=== PATIENT | female | born 1990 | race Caucasian/White ===

== ENCOUNTER 2020-11-21 14:50 | Emergency (ER) | payer OTHER, MEDICAID, SELFPAY ==
--- NOTE | ~2020-11-21 | XR_ITS ---
EXAMINATION: RIGHT WRIST RIGHT ELBOW CLINICAL INFORMATION: Pain. Possible fracture COMPARISON: None TECHNIQUE: 4 views right wrist. 3 views right elbow FINDINGS: Right wrist: Some partially opaque material superimposes over the distal ulna. The alignment is normal. No acute fracture. No focal lesion. Specifically the region of the radial styloid appears intact and there is no convincing overlying soft tissue swelling. The navicular appears intact. Right elbow: The lateral view is not optimally positioned. There is a subtle nearly nondisplaced fracture of the radial neck. There is likely hemarthrosis. XR/XR elbow RT min 3V IMPRESSION: Nearly nondisplaced radial neck fracture with hemarthrosis. No fracture or subluxation around the wrist.
--- NOTE | ~2020-11-21 | XR_ITS ---
EXAMINATION: RIGHT WRIST RIGHT ELBOW CLINICAL INFORMATION: Pain. Possible fracture COMPARISON: None TECHNIQUE: 4 views right wrist. 3 views right elbow FINDINGS: Right wrist: Some partially opaque material superimposes over the distal ulna. The alignment is normal. No acute fracture. No focal lesion. Specifically the region of the radial styloid appears intact and there is no convincing overlying soft tissue swelling. The navicular appears intact. Right elbow: The lateral view is not optimally positioned. There is a subtle nearly nondisplaced fracture of the radial neck. There is likely hemarthrosis. XR/XR wrist RT min 3V IMPRESSION: Nearly nondisplaced radial neck fracture with hemarthrosis. No fracture or subluxation around the wrist.
[2020-11-21 15:30] VITALS: BP 153/98; PULSE 92; RESP 20; TEMP 36.9; O2SAT 96; BMI 39.4
--- NOTE | 2020-11-21 16:16 | ED.EXTPRO ---
HPI - Extremity Problem General Chief complaint: Extremity Injury, Upper Stated complaint: R arm fracture, hand swollen Time Seen by Provider: 11/21/20 15:35 Source: patient Mode of arrival: ambulatory Limitations: no limitations History of Present Illness HPI Narrative: 30 y/o female presents to the ER for evaluation of right arm pain. [place] her right wrist and forearm. She went to Urgent are last night and diagnosed with a radius fracture. She was placed in a long arm splint. She presents today for evaluation as the arm started to hurt more, she noticed her hand was more swollen. Related Data Previous Rx's Medication Instructions Recorded hydrocodone 5 mg-acetaminophen 325 1 tab PO Q4-6H PRN #10 tab 11/21/20 mg tablet ibuprofen 600 mg tablet 600 mg PO Q8H PRN #20 tab 11/21/20 Allergies Allergy/AdvReac Type Severity Reaction Status Date / Time Penicillins [PENICILLINS] Allergy Unknown UNKNOWN Unverified 11/27/19 16:30 [facility] Past Medical History Surgical History (Updated 11/21/20 @ 15:33 by Verna Haywood) Previous section Social History Social History Advance Directives: No Advance Directives Information Provided: No Patient : No Physical Exam Vital Signs: Vital Signs: Last Vital Signs Temp 98.4 F 11/21/20 15:30 Pulse 92 11/21/20 15:30 Resp 20 11/21/20 15:30 BP 153/98 H 11/21/20 15:30 Pulse Ox 96 11/21/20 15:30 Body Mass Index 39.4 Appearance: Alert. Oriented X3. No acute distress. Eyes: Pupils equal, round and reactive to light. ENT: Pharynx normal. Neck: Normal inspection. Neck supple. CVS: Normal heart rate and rhythm. Pulses normal. Respiratory: No respiratory distress. Breath sounds normal. Skin: Skin warm and dry. Normal skin color. Normal skin turgor. No rashes. Extremities: right elbow with generalized swelling, slight warmth, no erythema to the area, very limited ROM due to pain, tender throughout entire elbow. right forearm with soft compartments. right wrist normal to inspection, limited active ROM due to pain in forearm and elbow. 2+ radial pulse. able to move all 5 digits, normal res habilitation assistant, no sensory deficits. Neuro: Oriented X 3. nonfocal Course Course Course Narrative: 30 y/o female presenting for evaluation of right elbow fracture that occurred yesterday. Splinted at Urgent Care with worsening pain extending into hand today. Splint removed with improvement in symptoms. Repeat XRs performed here. She would like to follow up with our Orthopedics rather than going to [facility] where she has gone in the past. Reevaluation(s) Reevaluation #1: XR showing nondisplaced radial neck fracture with proabble hemarthosis. Dalila Meyer PA-C from orthopedics made aware of the case, they will see her in the office. Plan to re-splint and provide pain control with d/c. Reevaluation #2: Splint in adequate position. Sling in place. Patient feels much better. Stable for d/c home with Ortho follow up. Discharge Plan Discharge Clinical Impression: Fracture of neck of radius Patient Disposition: Home, Self-Care Instructions: Elbow Fracture (ED) Additional Instructions: Your x-ray today showed a nondisplaced fracutre of the radial neck. Keep the splint in place until you are seen by Orthopedics this week. Name and number listed below, they are aware of your case. Recommend elevation of your arm whenever possible. Take the prescribed medications as needed for pain. If you develop new or worsening symptoms call 911 or come back to the ER for further evaluation. Prescriptions: New ibuprofen 600 mg tablet 600 mg PO Q8H PRN (Reason: pain) Qty: 20 RF: 0 hydrocodone-acetaminophen 5-325 mg tablet 1 tab PO Q4-6H PRN (Reason: pain) Qty: 10 RF: 0 Referrals: Dalila Meyer PA-C [Physician [employer]] - 2 days (left radial neck fx w/ hemarthrosis)
[2020-11-21] MEDS: HYDROcodone Bit/Acetam 5/325 TABLET 1 TAB PO (17:05)
--- NOTE | 2020-11-21 18:16 | PC.NURSE ---
SPLINT FROM URGENT CARE REMOVED AND NEW POSTERIOR LONG PLACE +CMS TO FINGER CHECKED BY SHAYNE MORAN.
== END 2020-11-21 18:17 | disposition home or self-care (01) ==
PROVIDERS: Emergency Provider Emergency Medicine
DX: S52.131A Displaced fracture of neck of right radius, initial encounter for closed fracture (principal); M25.521 Pain in right elbow; W01.0XXA Fall on same level from slipping, tripping and stumbling without subsequent striking against object, initial encounter; Y93.9 Activity, unspecified; Y92.832 Beach as the place of occurrence of the external cause; Y99.9 Unspecified external cause status; Z79.899 Other long term (current) drug therapy
CPT/HCPCS: 29125; 73080; 73110; 99283

== ENCOUNTER → 2020-11-24 14:49 | Outpatient (BNVA) | payer OTHER, MEDICAID, SELFPAY | PROVIDERS: Visit Provider Physician Assistant ==

== ENCOUNTER 2020-11-27 13:48 | Emergency (ER) | payer OTHER, MEDICAID, SELFPAY ==
[2020-11-27 14:51] VITALS: BP 167/100; PULSE 77; RESP 18; TEMP 36.9; O2SAT 98; BMI 42.0
--- NOTE | 2020-11-27 15:16 | ED.EXTPRO ---
HPI - Extremity Problem General Chief complaint: Extremity Problem Stated complaint: R HAND NUMBNESS PAIN Time Seen by Provider: 11/27/20 15:06 Source: patient Limitations: no limitations History of Present Illness HPI Narrative: This is a 30-year-old female who had fallen 6 days ago and injured her right forearm. The patient was diagnosed with the minimally displaced fracture at her elbow. She was placed in a splint. She did follow up with Orthopedics and the splint was deemed unnecessary, the patient was placed in an Carl bandage and a sling. The patient has been taking ibuprofen for pain. She also was prescribed Vicodin but states she does not like to take that type of medicine. She complains of some tingling in her right hand and pain with movement. She has 2 young children and notes that interacting with them seems to exacerbate the pain. The patient states she prefers to have a splint on the arm as it was more comfortable when the splint was in place and that is her principal reason for presenting today MD Complaint: extremity pain Onset (ago): day(s) Location: right Related Data Home Medications Medication Instructions Recorded Confirmed albuterol sulfate 90 mcg/actuation 2 puff INHALATION QID PRN 11/24/20 aerosol inhaler fluticasone propionate 50 1 spray INTRANASAL BID 11/24/20 mcg/actuation nasal spray,suspension nystatin 100,000 unit/gram topical TOPICAL 11/24/20 powder (Nystop) Previous Rx's Medication Instructions Recorded hydrocodone 5 mg-acetaminophen 325 1 tab PO Q4-6H PRN #10 tab 11/21/20 mg tablet ibuprofen 600 mg tablet 600 mg PO Q8H PRN #20 tab 11/21/20 ibuprofen 800 mg tablet 800 mg PO Q8H PRN 30 Days #90 tab 11/24/20 Allergies Allergy/AdvReac Type Severity Reaction Status Date / Time Penicillins [PENICILLINS] Allergy Unknown UNKNOWN Unverified 11/24/20 15:18 Review of Systems Musculoskeletal: Comments: Right elbow/forearm pain, paresthesia to right hand PMFSH Past Medical History Surgical History Previous section Social History Social History Advance Directives: No Advance Directives Information Provided: No Physical Exam Vital Signs: Vital Signs: Last Vital Signs Temp 98.4 F 11/27/20 14:51 Pulse 77 11/27/20 14:51 Resp 18 11/27/20 14:51 BP 167/100 H 11/27/20 14:51 Pulse Ox 98 11/27/20 14:51 Body Mass Index 42.0 HENMT: Head: Yes normal to inspection Resp: Effort & Inspection: normal respiratory effort Auscultation: clear to auscultation bilaterally Cardio: Rate: regular rate Rhythm: regular rhythm Heart sounds: S1 normal heart sound present and S2 normal heart sound present Extrem: Other: No ecchymosis, swelling, deformity. Mild tenderness to left medial elbow. Normal radial pulses and neurovascular function of the hand. MDM - Extremity (Nontraumatic) MDM Narrative Medical decision making narrative: Patient with the right radial neck fracture, occurred 6 days ago, had been splinted but splint was removed and patient was recommended to use a sling and Carl bandage however the patient states she has more pain without the splint, request splint replacement. A sugar tong splint was placed from the elbow to the wrist and the patient will use a sling as well. She can follow-up with orthopedics Discharge Plan Discharge Clinical Impression: Fracture of neck of right radius Patient Disposition: Home, Self-Care Instructions: Elbow Fracture (ED) Additional Instructions: Follow-up with orthopedics. Wear the splint for comfort for at least 2 weeks, and then transition to a sling, or is advised Orthopedics. He has had for a fin for pain. Return for any new or worsened symptoms. Prescriptions: No Action ibuprofen 600 mg tablet 600 mg PO Q8H PRN (Reason: pain) Qty: 20 RF: 0 hydrocodone-acetaminophen 5-325 mg tablet 1 tab PO Q4-6H PRN (Reason: pain) Qty: 10 RF: 0 fluticasone propionate 50 mcg/actuation spray,suspension 1 spray intranasal BID RF: 0 albuterol sulfate 90 mcg/actuation HFA aerosol inhaler 2 puff inhalation QID PRN (Reason: wheezing) RF: 0 nystatin [Nystop] 100,000 unit/gram powder topical RF: 0 ibuprofen 800 mg tablet 800 mg PO Q8H PRN (Reason: pain) 30 Days Qty: 90 RF: 3 Interventions: ED Discharge Assessment Last Done: 11/27/20 16:07 Discharge Date/Time: 11/27/20 16:07
== END 2020-11-27 16:07 | disposition home or self-care (01) ==
PROVIDERS: Emergency Provider Emergency Medicine
DX: S52.131A Displaced fracture of neck of right radius, initial encounter for closed fracture (principal); M79.601 Pain in right arm; X58.XXXA Exposure to other specified factors, initial encounter; Y93.9 Activity, unspecified; Y92.9 Unspecified place or not applicable; Y99.9 Unspecified external cause status
CPT/HCPCS: 29105; 99283; 99284

== ENCOUNTER → 2020-11-29 13:04 | Outpatient (BNVA) | payer OTHER, MEDICAID, SELFPAY | PROVIDERS: Visit Provider Physician Assistant ==

== ENCOUNTER 2020-11-30 11:34 | Outpatient (REF) | payer OTHER, MEDICAID, SELFPAY ==
--- NOTE | ~2020-11-30 | XR_ITS ---
EXAMINATION: XR ELBOW, RIGHT XR WRIST, RIGHT CLINICAL INFORMATION: Right wrist and elbow pain. COMPARISON: 11/21/2020 TECHNIQUE: AP, lateral, and oblique views of the right elbow. 3 views of the right wrist. FINDINGS: Views of the right elbow again demonstrate a nondisplaced fracture involving the radial head. No dislocation is evident. There remains a large elbow effusion. There is no evidence of acute fracture or dislocation of the right wrist. Joint spaces intact. No significant degenerative spurring is seen. XR/XR elbow RT min 3V IMPRESSION: No change in appearance of nondisplaced right radial head fracture with right elbow effusion. No bony abnormality of the right wrist identified.
== END 2020-11-30 11:35 | disposition home or self-care (01) ==
LOC: HO.XRAY 11:34
PROVIDERS: Visit Provider Physician Assistant
DX: M25.521 Pain in right elbow (principal)
CPT/HCPCS: 73080

== ENCOUNTER 2020-12-02 11:13 | Outpatient (REF) | payer OTHER, MEDICAID, SELFPAY ==
--- NOTE | ~2020-12-02 | XR_ITS ---
EXAMINATION: XR WRIST, RIGHT CLINICAL INFORMATION: Pain in right wrist COMPARISON: Right wrist radiograph from 11/21/2020 TECHNIQUE: PA, lateral, and oblique views of the right wrist. FINDINGS: No acute visible fracture or dislocation. Joint spaces and alignment are maintained. Soft tissues are unremarkable. XR/XR wrist RT min 3V IMPRESSION: No acute visible fracture or dislocation.
== END 2020-12-02 11:14 | disposition home or self-care (01) ==
LOC: HO.HOSX 11:13
PROVIDERS: Visit Provider Physician Assistant
DX: S52.121D Displaced fracture of head of right radius, subsequent encounter for closed fracture with routine healing (principal); S63.501D Unspecified sprain of right wrist, subsequent encounter
CPT/HCPCS: 73110

== ENCOUNTER 2020-12-09 08:30 | Outpatient (REF) | payer OTHER, MEDICAID, SELFPAY ==
--- NOTE | ~2020-12-09 | XR_ITS ---
EXAMINATION: XR ELBOW, RIGHT CLINICAL INFORMATION: Elbow pain. COMPARISON: 11/30/20. TECHNIQUE: AP and lateral views of the right elbow. FINDINGS: The fracture of the radial head is becoming indistinct with ongoing healing. Anatomic alignment is maintained. No new abnormality. No joint effusion is demonstrated. XR/XR elbow RT 2V IMPRESSION: Healing fracture right radial head with stable anatomic alignment.
--- NOTE | ~2020-12-09 | XR_ITS ---
EXAMINATION: XR WRIST, RIGHT CLINICAL INFORMATION: Pain. Trauma. COMPARISON: 12/02/20. 11/21/20. TECHNIQUE: PA, lateral, and oblique views of the right wrist. FINDINGS: The bones and soft tissues are normal. No fracture. Alignment is anatomic with normal joint spaces. XR/XR wrist RT min 3V IMPRESSION: Normal right wrist.
== END 2020-12-09 08:31 | disposition home or self-care (01) ==
LOC: HO.HOSX 08:30
PROVIDERS: Visit Provider Orthopaedic Surgery
DX: S52.121D Displaced fracture of head of right radius, subsequent encounter for closed fracture with routine healing (principal)
CPT/HCPCS: 73070; 73110

== ENCOUNTER → 2020-12-30 09:45 | Outpatient (BNVA) | payer OTHER, MEDICAID, SELFPAY | PROVIDERS: Visit Provider Orthopaedic Surgery ==

== ENCOUNTER 2021-01-08 10:21 | Emergency (ER) | payer OTHER, MEDICAID, SELFPAY ==
--- NOTE | ~2021-01-08 | CT_ITS ---
EXAMINATION: CT ABDOMEN AND PELVIS WITHOUT CONTRAST CLINICAL INFORMATION: Right lower quadrant and left flank pain. Evaluate for kidney stones. COMPARISON: None TECHNIQUE: Multidetector volumetric imaging was performed from the superior aspect of the liver through the pubic symphysis. Sagittal and coronal reformatted images were obtained on the technologist's workstation. This CT examination was performed using dose optimization techniques as appropriate, variously including the following: *Automated exposure control *Adjustment of mA and/or kV according to patient size (this includes techniques or standardized protocols for targeted exams where dose is matched to indication/reason for exam; i.e. extremities or head) *Use of iterative reconstruction technique DLP: 1129 mGy-cm FINDINGS: LUNG BASES: The visualized lung bases are unremarkable. LIVER, GALLBLADDER, AND BILIARY TREE: The liver is enlarged and low in attenuation suggestive of fatty infiltration. No focal liver lesion or biliary duct dilatation. The gallbladder is unremarkable with no evidence of radiopaque gallstones, gallbladder wall thickening, or obvious pericholecystic inflammatory changes. PANCREAS: Unremarkable. SPLEEN: Unremarkable. ADRENAL GLANDS: Unremarkable. KIDNEYS AND URETERS: The kidneys are normal in size, shape, and attenuation. No hydronephrosis, hydroureter, or calculi seen. No perinephric stranding. BLADDER: Unremarkable. GASTROINTESTINAL TRACT: The small and large bowel are unremarkable. The appendix is unremarkable. ABDOMINAL WALL: There is a small umbilical hernia containing fat. There are postsurgical changes to the low midline abdominal wall. LYMPH NODES: Normal. VASCULAR: Unremarkable. PELVIC VISCERA: There is stranding of the fat anterior to the uterus extending to the abdominal wall likely related to post surgical changes. There is a small cyst seen in the left pelvis measuring 9 mm axial image 84 series 3. This appears separate from the uterus, bladder and left adnexa. This has low Hounsfield units suggestive of a simple cyst. This is of uncertain etiology. The uterus and ovaries are unremarkable. OSSEOUS STRUCTURES: Unremarkable. CT/CT abdomen pelvis wo con IMPRESSION: No renal stone or hydronephrosis seen. Normal-appearing appendix. Postsurgical changes in the pelvis. 1 cm a small cyst in the left pelvis of uncertain etiology. Fatty liver.
[2021-01-08 10:45] VITALS: BP 149/99; PULSE 99; RESP 18; TEMP 36.9; O2SAT 98; BMI 39.4
[2021-01-08 11:48] LABS: UPreg QC Valid YES; Urine Pregnancy NEGATIVE (NEGATIVE)
[2021-01-08 11:53] LABS: Hematocrit 39.8 % (37.0-47.0); Hemoglobin 13.6 g/dl (12.0-16.0); Mean Corpuscular HGB Conc 34.2 g/dl (31.0-35.0); Mean Corpuscular Hemoglobin 31.1 pg (27.0-33.0); Mean Corpuscular Volume 90.9 fL (80.0-98.0); Platelet Count 352 X10*3/uL (160-400); Red Blood Count 4.38 X10*6/uL (4.20-5.50); Red Cell Distribution Width 11.9 % (11.0-16.0); White Blood Count 9.7 X10*3/uL (4.8-10.8)
[2021-01-08 11:54] LABS: Appearance Urine CLOUDY; Glucose Urine UA NEG (NEG); Leukocyte Esterase Urine TRACE (NEG); Nitrite Urine NEG (NEG); Specific Gravity - Urine >= 1.030 (1.005-1.025); Urine Blood 3+ (NEG); Urine Ketones NEG (NEG); Urine Protein 2+ MG/DL (NEG-TRACE)
[2021-01-08 11:55] LABS: Mucus Urine TRACE /LPF; RBC Urine TNTC /HPF (0); Squamous Epithelial Cell Urine TRACE /LPF
--- NOTE | 2021-01-08 11:55 | ED_ITS ---
HPI - General Adult General Chief complaint: Abdominal Pain Stated complaint: ABD AND BACK PAIN BLOOD IN URINE [facility] Time Seen by Provider: 01/08/21 11:53 Source: patient Mode of arrival: ambulatory Limitations: no limitations History of Present Illness HPI narrative: 30 year old famle with no known medical history presents to the ED with abdominal pain, flank pain, blood in urine X3 days and progressively worsening. She states the abdominal pain is localized to the right lower quadrant, she describes is intermittent, stabbing pain that is 10/10. She also describes left flank pain that radiates to her anterior abdomen, again intermittent in nature, 10/10 pain. She also states that she has noted that she has been having blood in her urine for the past 3 days, it is dark red in color, this was never happened to her before. She has no history of kidney stones. She also notes that she has been excessively sweating, nauseous over the past 3 days. She reports anorexia. She denies chest pain, shortness of breath, fevers, chills, vomiting, diarrhea, weakness, recent upper respiratory infec tion, recent sick contacts. Onset (ago): day(s) (3) Location: abdomen (RLQ) Radiation: non-radiation Severity: severe Severity scale (1-10): 10 Quality: stabbing Pain Consistency: intermittent Relieving factors: none Exacerbating factors: none Associated symptoms: diaphoresis Treatments prior to arrival: none Related Data Home Medications Medication Instructions Recorded Confirmed albuterol sulfate 90 mcg/actuation 2 puff INHALATION QID PRN 11/24/20 aerosol inhaler fluticasone propionate 50 1 spray INTRANASAL BID 11/24/20 mcg/actuation nasal spray,suspension nystatin 100,000 unit/gram topical TOPICAL 11/24/20 powder (Nystop) Previous Rx's Medication Instructions Recorded hydrocodone 5 mg-acetaminophen 325 1 tab PO Q4-6H PRN #10 tab 11/21/20 mg tablet ibuprofen 600 mg tablet 600 mg PO Q8H PRN #20 tab 11/21/20 ibuprofen 800 mg tablet 800 mg PO Q8H PRN 30 Days #90 tab 11/24/20 nitrofurantoin 100 mg PO Q12H 5 Days #10 cap 01/08/21 monohydrate/macrocrystals 100 mg capsule (Macrobid) phenazopyridine 100 mg tablet 100 mg PO TID PRN #12 tab 01/08/21 (Pyridium) Allergies Allergy/AdvReac Type Severity Reaction Status Date / Time Penicillins [PENICILLINS] Allergy Unknown UNKNOWN Verified 12/09/20 11:52 Review of Systems Review of Systems: Yes all other systems are reviewed and are negative Constitutional: Constitutional: Reports no additional constitutional complaints, Denies body ache(s), Denies chills, Denies fever(s), Denies headache(s) and Denies weakness Eyes: Eyes: Reports no additional eye complaints and Denies change in vision ENT: Reports system reviewed and no additional complaints, except as documented, Denies dizziness, Denies headache(s), Denies nasal congestion, Denies nasal discharge and Denies neck pain Cardiovascular: Cardiovascular: Reports no additional cardiovascular complaints, Denies chest pain, Denies leg edema and Denies dyspnea Respiratory: Respiratory: Reports no additional respiratory complaints, Denies cough and Denies dyspnea Gastrointestinal: Gastrointestinal: Reports no additional gastrointestinal complaints, Reports abdominal pain (RLQ), Denies diarrhea, Denies nausea and Denies vomiting Genitourinary: Genitourinary: Reports no additional female genitourinary complaints, Reports hematuria and Denies urinary incontinence Musculoskeletal: Musculoskeletal: Reports no additional musculoskeletal complaints, Reports back pain (Left flank pain ), Denies arthralgias, Denies joint swelling, Denies neck pain, Denies numbness and Denies tingling Integumentary/Breasts: Skin/Breast: Reports system reviewed and no additional complaints, except as docu and Denies rash Neurologic: Reports system reviewed and no additional complaints, except as documented, Denies Abnormal speech present, Denies dizziness, Denies headache(s), Denies numbness, Denies tingling and Denies weakness [facility] Past Medical History Attestation statement: The following information was validated with the patient. Source: old records reviewed and nursing notes reviewed Surgical History Previous section Social History Social History Alcohol intake: never Patient Tobacco Use Status: Never used Tobacco Use of substances other than those prescribed or required for medical reasons: No Advance Directives: No Advance Directives Information Provided: No Patient : No Physical Exam Vital Signs: Vital Signs: Last Vital Signs Temp 97.7 F 01/08/21 13:39 Pulse 77 01/08/21 13:39 Resp 15 01/08/21 13:39 BP 144/87 H 01/08/21 13:39 Pulse Ox 100 01/08/21 13:39 Body Mass Index 39.4 Const: General: cooperative, healthy appearing, comfortable, no acute distress and diaphoretic Orientation/consciousness: patient oriented x3 Limitations: no limitations HENMT: Head: Yes normal to inspection Ears: hearing grossly normal bilaterally General nose exam: Normal external nose present Face and sinus: Yes normal facial exam Mouth: Normal oral and palatal mucosa present Throat: Yes posterior oropharynx normal Eyes: General: appearance normal, both eyes and all related structures Pupils: Equal, round and reactive pupils present Neck: Neck: Yes normal visual inspection Chest: Chest palpation & inspection: normal inspection of the chest Resp: Effort & Inspection: normal respiratory effort Auscultation: clear to auscultation bilaterally Cardio: Rate: regular rate Rhythm: regular rhythm Peripheral pulses: Peripheral pulses 2+ throughout GI: Inspection: Yes normal to inspection Palpation (GI): Soft to palpation and Tenderness to palpation present (GI) in the RLQ Auscultation: normal bowel sounds Back/Spine/Pelvis: Thoracic/Lumbar Spine: thoracic and lumbar spine normal to inspection Skin: General skin exam: no rashes or lesions noted Neuro: General: patient oriented x3, no focal motor deficits and normal sensation to monofilament Cranial nerves: Yes Equal, round and reactive pupils present Cognition (Neuro): normal cognition Speech: No Abnormal speech present Gait exam (Neuro): Normal gait present Motor exam (neuro): 5/5 motor strength present throughout Extrem: General: Yes normal to inspection Course Reevaluation(s) Reevaluation #1: CBC shows no signs of infection, no leukocytosis, no anemia. No electrolyte abnormalities. Urine test negative. UA shows 3+ blood and trace leukocyte esterase consistent with kidney stones. A dry scan of the abdomen and pelvis has been ordered at this time. Patient will be medicated with zofran and morphine, as patient has a safe ride home. Time: 12:21 Reevaluation #2: CT of the abdomen shows No renal stones or hydronephrosis. Fatty liver is noted. There is a 1 cm small cyst in the left pelvis. Based off patient's symptoms, history, physical, labs and imaging this is likely cystitis. Patient will be sent home on Macrobid, and Pyridium. She has been advised to return to the emergency department new or worsening symptoms, or if she develops fevers, chills, shortness of breath, or worsening abdominal pain. She is safe for discharge home with PCP follow-up. Time: 14:36 Medical Decision Making MDM Narrative Medical decision making narrative: 1157 30 yo F no known pmhx presents to the ED with right lower quadrant pain, anorexia, hematuria and left-sided flank pain that radiates to the anterior abdomen x3 days progressively worsening. She states that the abdominal pain, and flank pain are both intermittent in nature, described as stabbing, and 10/10 pain. No previous abdominal surgeries other than a . Denies fevers, chills, vomiting, diarrhea, chest pain, shortness of breath Upon physical examination there is pain to palpation in the right lower quadrant. Pain to the left flank is nonreproducible. Patient's skin is extremely diaphoretic, and clammy. S1-S2 appreciated free of murmurs. Lungs are clear to auscultation. No CVA tenderness bilaterally. Plan at this time is to obtain UA, urine , basic labs, CT of abdomen and pelvis. Medical Records Medical records reviewed: Yes I reviewed the patient's medical records. Lab Data Lab results reviewed: Yes I reviewed the patient's lab results. Result diagrams: 01/08/21 11:31 01/08/21 11:31 Labs: Lab Results 01/08/21 01/08/21 01/08/21 Range/Units 11:31 11:31 11:39 WBC 9.7 (4.8-10.8) X10*3/uL RBC 4.38 (4.20-5.50) X10*6/uL Hgb 13.6 (12.0-16.0) g/dl Hct 39.8 (37.0-47.0) % MCV 90.9 (80.0-98.0) fL MCH 31.1 (27.0-33.0) pg MCHC 34.2 (31.0-35.0) g/dl RDW 11.9 (11.0-16.0) % Plt Count 352 (160-400) X10*3/uL MPV 10.0 (9.4-12.3) fL Absolute Nucleated RBC 0.000 (0.0-0.012) X10*3/uL Nucleated RBC % (auto) 0.0 (0.0-0.2) /100WBC Sodium 137 (135-145) mmol/L Potassium 4.1 (3.3-5.1) mmol/L Chloride 105 (96-108) mmol/L Carbon Dioxide 23 (22-29) mmol/L Anion Gap 13 (12-20) BUN 8 L (9-16) mg/dL Creatinine 0.74 (0.5-1.4) mg/dL Estim Creat Clear Calc 133.2 Estimated GFR > 60 Random Glucose 92 (60-115) mg/dL Calcium 9.6 (8.4-10.2) mg/dL Lipase 14 (8-78) U/L Urine Color RED Urine Appearance CLOUDY Urine pH 6.0 (5.0-8.0) Ur Specific [place] >= 1.030 H (1.005-1.025) Urine Protein 2+ H (NEG-TRACE) MG/DL Urine Glucose (UA) NEG (NEG) MG/DL Urine Ketones NEG (NEG) MG/DL Urine Blood 3+ H (NEG) Urine Nitrite NEG (NEG) Ur Leukocyte Esterase TRACE H (NEG) Urine RBC TNTC H (0) /HPF Urine WBC 1-4 (0-4) /HPF Ur Squamous Epith Cells TRACE /LPF Urine Bacteria NONE /LPF Urine Mucus TRACE /LPF Urine Test (NEGATIVE) 01/08/21 Range/Units 11:39 WBC (4.8-10.8) X10*3/uL RBC (4.20-5.50) X10*6/uL Hgb (12.0-16.0) g/dl Hct (37.0-47.0) % MCV (80.0-98.0) fL MCH (27.0-33.0) pg MCHC (31.0-35.0) g/dl RDW (11.0-16.0) % Plt Count (160-400) X10*3/uL MPV (9.4-12.3) fL Absolute Nucleated RBC (0.0-0.012) X10*3/uL Nucleated RBC % (auto) (0.0-0.2) /100WBC Sodium (135-145) mmol/L Potassium (3.3-5.1) mmol/L Chloride (96-108) mmol/L Carbon Dioxide (22-29) mmol/L Anion Gap (12-20) BUN (9-16) mg/dL Creatinine (0.5-1.4) mg/dL Estim Creat Clear Calc Estimated GFR Random Glucose (60-115) mg/dL Calcium (8.4-10.2) mg/dL Lipase (8-78) U/L Urine Color Urine Appearance Urine pH (5.0-8.0) Ur Specific [place] (1.005-1.025) Urine Protein (NEG-TRACE) MG/DL Urine Glucose (UA) (NEG) MG/DL Urine Ketones (NEG) MG/DL Urine Blood (NEG) Urine Nitrite (NEG) Ur Leukocyte Esterase (NEG) Urine RBC (0) /HPF Urine WBC (0-4) /HPF Ur Squamous Epith Cells /LPF Urine Bacteria /LPF Urine Mucus /LPF Urine Test NEGATIVE (NEGATIVE) Imaging Data CT of abdomen and pelvis: Attestation: I personally reviewed and interpreted this imaging study as follows: Radiologist's impression: CT/CT abdomen pelvis wo con IMPRESSION: No renal stone or hydronephrosis seen. Normal-appearing appendix. Postsurgical changes in the pelvis. 1 cm a small cyst in the left pelvis of uncertain etiology. Fatty liver. Discharge Plan Discharge Clinical Impression: Kidney stone, Cystitis Abdominal pain Qualifiers: Abdominal location: right lower quadrant Qualified Code(s): R10.31 - Right lower quadrant pain Patient Disposition: Home, Self-Care Instructions: Kidney Stones (ED), Hematuria (ED), Abdominal Pain (ED), Flank Pain (ED) Additional Instructions: Take antibiotics as prescribed, dont skip any doses Drink plenty of fluids Return to the emergency department with with new or worsening symptoms Prescriptions: New nitrofurantoin monohyd/m-cryst [Macrobid] 100 mg capsule 100 mg PO Q12H 5 Days Qty: 10 RF: 0 phenazopyridine [Pyridium] 100 mg tablet 100 mg PO TID PRN (Reason: pain) Qty: 12 RF: 0 No Action ibuprofen 600 mg tablet 600 mg PO Q8H PRN (Reason: pain) Qty: 20 RF: 0 hydrocodone-acetaminophen 5-325 mg tablet 1 tab PO Q4-6H PRN (Reason: pain) Qty: 10 RF: 0 fluticasone propionate 50 mcg/actuation spray,suspension 1 spray intranasal BID RF: 0 albuterol sulfate 90 mcg/actuation HFA aerosol inhaler 2 puff inhalation QID PRN (Reason: wheezing) RF: 0 nystatin [Nystop] 100,000 unit/gram powder topical RF: 0 ibuprofen 800 mg tablet 800 mg PO Q8H PRN (Reason: pain) 30 Days Qty: 90 RF: 3 Referrals: Physician,Unknown J [Primary Care Provider] - 2 days Stand Alone Forms: Work/School Release Interventions: ED Discharge Assessment Last Done: 01/08/21 14:57 Discharge Date/Time: 01/08/21 14:58
[2021-01-08 11:58] LABS: Anion Gap 13 (12-20); Blood Urea Nitrogen 8 mg/dL (9-16); Calcium 9.6 mg/dL (8.4-10.2); Carbon Dioxide 23 mmol/L (22-29); Chloride 105 mmol/L (96-108); Creatinine Clr Calc Pharmacy 133.2; Estimated Glomerular Filt Rate > 60; Glucose Random 92 mg/dL (60-115); Lipase 14 U/L (8-78); Potassium 4.1 mmol/L (3.3-5.1); Sodium 137 mmol/L (135-145)
[2021-01-08 11:59] VITALS: BP 134/87; PULSE 98; RESP 18; TEMP 36.8; O2SAT 97
[2021-01-08 12:11] LABS: Color Urine RED
[2021-01-08] MEDS: Morphine Sulfate 4 MG/ML CARTRIDGE IVPUSH (12:32)
[2021-01-08] MEDS: 0.9 % Sodium Chloride 1,000 ML 999 ML IV (12:32)
[2021-01-08] MEDS: ondansetron HCL 4 MG/2 ML VIAL IVPUSH (12:32)
[2021-01-08 13:39] VITALS: BP 144/87; PULSE 77; RESP 15; TEMP 36.5; O2SAT 100
[2021-01-08] MEDS: Acetaminophen 325 MG TABLET 650 MG PO (14:45)
== END 2021-01-08 14:58 | disposition home or self-care (01) ==
PROVIDERS: Emergency Provider Emergency Medicine
DX: N20.0 Calculus of kidney (principal); R31.9 Hematuria, unspecified; N30.90 Cystitis, unspecified without hematuria; Z79.899 Other long term (current) drug therapy
CPT/HCPCS: 36415; 74176; 80048; 81001; 81025; 83690; 85027; 96361; 96374; 96375; 99284; 99285; J2270; J2405

== ENCOUNTER 2021-01-11 14:48 | Emergency (ER) | payer OTHER, MEDICAID, SELFPAY ==
--- NOTE | ~2021-01-11 | US_ITS ---
EXAMINATION: US PELVIC OVARIAN DOPPLER CLINICAL INFORMATION: Right lower quadrant pain. LMP 01/09/2021. COMPARISON: CT abdomen/pelvis dated 01/08/2021. TECHNIQUE: Transabdominal and transvaginal imaging was performed. FINDINGS: The uterus is anteverted and measures 10 x 3.9 x 4.9 cm for a volume of 93.9 mL. No myometrial lesion. Unremarkable endometrium measuring 0.9 cm in thickness. Sonographically unremarkable right ovary measuring 3.3 x 2.6 x 2.3 cm for a volume of 10.3 mL. Sonographically unremarkable left ovary measuring 3.4 x 1.4 x 3.1 cm for a volume of 7.7 mm. Doppler detectable vascular flow within the right and left ovary. No pelvic free fluid. US/US pelvic ovarian doppler IMPRESSION: Unremarkable examination.
[2021-01-11 14:57] VITALS: BP 146/91; PULSE 71; RESP 16; O2SAT 100; BMI 37.8
[2021-01-11 16:19] VITALS: BP 146/89; PULSE 62; RESP 20; TEMP 36.5; O2SAT 99
--- NOTE | 2021-01-11 16:19 | ED_ITS ---
HPI - Abdominal Pain General Chief Complaint: Abdominal Pain Stated Complaint: Abnormal labs Time Seen by Provider: 01/11/21 15:46 Source: patient and old records reviewed History of Present Illness HPI narrative: Patient complaining of back pain and low abdominal pain. She was seen here 2 days ago and had a CT scan blood work and urinalysis. CT scan showed no evidence of appendicitis. And no obvious cause for her pain. There was a small cyst in the left pelvis that appears separate from the ovary. Uncertain significance She states her last normal menstrual period was a little over 2 weeks ago. She had significant vaginal bleeding on Sunday morning however. She states this is never happened to her before. She is and 5 months status post after normal . She states the vaginal bleeding has stopped but the pain continues. She has been taking an antibiotic for a presumed urinary tract infection. Urinalysis showed blood but no significant white cells or bacteria. She denies history of similar issues. She states she has been having minimal p.o. intake since this all started. Related Data Home Medications Medication Instructions Recorded Confirmed albuterol sulfate 90 mcg/actuation 2 puff INHALATION QID PRN 11/24/20 aerosol inhaler fluticasone propionate 50 1 spray INTRANASAL BID 11/24/20 mcg/actuation nasal spray,suspension nystatin 100,000 unit/gram topical TOPICAL 11/24/20 powder (Nystop) Previous Rx's Medication Instructions Recorded hydrocodone 5 mg-acetaminophen 325 1 tab PO Q4-6H PRN #10 tab 11/21/20 mg tablet ibuprofen 600 mg tablet 600 mg PO Q8H PRN #20 tab 11/21/20 ibuprofen 800 mg tablet 800 mg PO Q8H PRN 30 Days #90 tab 11/24/20 nitrofurantoin 100 mg PO Q12H 5 Days #10 cap 01/08/21 monohydrate/macrocrystals 100 mg capsule (Macrobid) phenazopyridine 100 mg tablet 100 mg PO TID PRN #12 tab 01/08/21 (Pyridium) ondansetron HCl 4 mg tablet 4 mg PO Q8H PRN #14 tab 01/11/21 (Zofran) oxycodone-acetaminophen 5 mg-325 1 tab PO TID PRN #10 tab 01/11/21 mg tablet (Percocet) oxycodone-acetaminophen 5 mg-325 1 tab PO TID PRN #10 tab 01/11/21 mg tablet (Percocet) Allergies Allergy/AdvReac Type Severity Reaction Status Date / Time Penicillins [PENICILLINS] Allergy Unknown UNKNOWN Verified 12/09/20 11:52 Review of Systems Comments: No fevers or chills Comments: No chest pain Comments: No cough or dyspnea Comments: Abdominal pain is described Comments: Vaginal bleeding as described. No dysuria. No other significant discharge Comments: No rash Physical Exam Vital Signs: Vital Signs: Last Vital Signs Temp 98.2 F 01/11/21 18:52 Pulse 60 01/11/21 18:52 Resp 15 01/11/21 18:52 BP 138/81 01/11/21 18:52 Pulse Ox 99 01/11/21 18:52 Body Mass Index 37.8 Course Course Course Narrative: Patient with pelvic pain radiating to her back in the setting of a normal CT scan 2 days ago. Question of cystic structure in the pelvic region of uncertain etiology unlikely related to her current discomfort. Patient states pain is most severe in the right lower quadrant. Will order ultrasound rule out torsion Repeat labs as well as urine. IV Zofran and IV Toradol for better pain control. 6:50 p.m.. Pain mildly improved but still states she is having spasms of pain in her low abdomen. Workup in the emergency department is reassuring in that her ultrasound is normal without evidence of torsion or cyst. Her lab work is also reassuring with normal chemistries, normal lipase, normal renal function, normal hepatic function, and normal white count and hemoglobin. She is stable for discharge home. Will prescribe Percocet for pain and follow-up with OBGYN in gastroenterology MDM - Abdominal Pain Lab Data Result diagrams: 01/11/21 17:09 01/11/21 17:09 Labs: Lab Results 01/11/21 01/11/21 Range/Units 17:09 17:09 WBC 6.3 (4.8-10.8) X10*3/uL RBC 4.26 (4.20-5.50) X10*6/uL Hgb 13.2 (12.0-16.0) g/dl Hct 38.4 (37.0-47.0) % MCV 90.1 (80.0-98.0) fL MCH 31.0 (27.0-33.0) pg MCHC 34.4 (31.0-35.0) g/dl RDW 11.8 (11.0-16.0) % Plt Count 371 (160-400) X10*3/uL MPV 9.8 (9.4-12.3) fL Immature Gran % (Auto) 0.2 (0.0-0.4) % Neut % (Auto) 58.5 (45-73) % Lymph % (Auto) 34.4 (20-40) % [place] % (Auto) 6.0 (2-11) % Eos % (Auto) 0.6 (0-4) % Baso % (Auto) 0.3 (0-2) % Lymph # (Auto) 2.2 (1.2-4.9) X10*3/uL [place] # (Auto) 0.4 (0.1-1.2) X10*3/uL Eos # (Auto) 0.0 (0.0-0.4) X10*3/uL Baso # (Auto) 0.0 (0.0-0.2) X10*3/uL Abs Immat Gran (auto) 0.01 (0.00-0.03) X10*3/uL Absolute Neuts (auto) 3.70 (2.0-8.3) x10*3/uL Absolute Nucleated RBC 0.000 (0.0-0.012) X10*3/uL Nucleated RBC % (auto) 0.0 (0.0-0.2) /100WBC Sodium 140 (135-145) mmol/L Potassium 3.6 (3.3-5.1) mmol/L Chloride 105 (96-108) mmol/L Carbon Dioxide 25 (22-29) mmol/L Anion Gap 14 (12-20) BUN 10 (9-16) mg/dL Creatinine 0.73 (0.5-1.4) mg/dL Estim Creat Clear Calc 131.7 Estimated GFR > 60 Random Glucose 85 (60-115) mg/dL Calcium 9.4 (8.4-10.2) mg/dL Total Bilirubin 0.5 (0.0-1.0) mg/dL AST 24 (5-31) U/L ALT 27 (0-31) U/L Alkaline Phosphatase 56 (39-117) U/L Total Protein 7.4 (6.5-8.0) g/dL Albumin 4.6 (3.5-5.0) g/dL Lipase 13 (8-78) U/L Discharge Plan Discharge Clinical Impression: Abdominal pain Qualifiers: Abdominal location: right lower quadrant Qualified Code(s): R10.31 - Right lower quadrant pain Patient Disposition: Home, Self-Care Instructions: Abdominal Pain (ED), Pelvic Pain (ED) Additional Instructions: Follow-up with GI as discussed. Also call your OBGYN for additional follow-up secondary to abnormal uterine bleeding Prescriptions: New oxycodone-acetaminophen [Percocet] 5-325 mg tablet 1 tab PO TID PRN (Reason: pain) Qty: 10 RF: 0 ondansetron HCl [Zofran] 4 mg tablet 4 mg PO Q8H PRN (Reason: nausea and vomiting) Qty: 14 RF: 0 oxycodone-acetaminophen [Percocet] 5-325 mg tablet 1 tab PO TID PRN (Reason: pain) Qty: 10 RF: 0 No Action ibuprofen 600 mg tablet 600 mg PO Q8H PRN (Reason: pain) Qty: 20 RF: 0 hydrocodone-acetaminophen 5-325 mg tablet 1 tab PO Q4-6H PRN (Reason: pain) Qty: 10 RF: 0 nitrofurantoin monohyd/m-cryst [Macrobid] 100 mg capsule 100 mg PO Q12H 5 Days Qty: 10 RF: 0 phenazopyridine [Pyridium] 100 mg tablet 100 mg PO TID PRN (Reason: pain) Qty: 12 RF: 0 fluticasone propionate 50 mcg/actuation spray,suspension 1 spray intranasal BID RF: 0 albuterol sulfate 90 mcg/actuation HFA aerosol inhaler 2 puff inhalation QID PRN (Reason: wheezing) RF: 0 nystatin [Nystop] 100,000 unit/gram powder topical RF: 0 ibuprofen 800 mg tablet 800 mg PO Q8H PRN (Reason: pain) 30 Days Qty: 90 RF: 3 Referrals: Alexey Jarquin MD [Physician] - 2 days [facility] Past Medical History Surgical History Previous section Social History Social History Alcohol intake: never Patient Tobacco Use Status: Never used Tobacco Advance Directives: No Advance Directives Information Provided: Yes Patient : No
[2021-01-11] MEDS: 0.9 % Sodium Chloride 1,000 ML 999 ML IV (17:10)
[2021-01-11] MEDS: ondansetron HCL 4 MG/2 ML VIAL IVPUSH (17:17)
[2021-01-11] MEDS: Ketorolac Tromethamine 15 MG/ML VIAL 30 MG IVPUSH (17:18)
[2021-01-11 17:25] LABS: MANUAL DIFF FLAG NO
[2021-01-11 17:27] LABS: Basophils Percent Auto 0.3 % (0-2); Eosinophils Percent Auto 0.6 % (0-4); Hematocrit 38.4 % (37.0-47.0); Hemoglobin 13.2 g/dl (12.0-16.0); Imm Gran Abs Auto 0.01 X10*3/uL (0.00-0.03); Imm Gran Pct Auto 0.2 % (0.0-0.4); Lymphocytes Absolute Auto 2.2 X10*3/uL (1.2-4.9); Lymphocytes Percent Auto 34.4 % (20-40); Mean Corpuscular HGB Conc 34.4 g/dl (31.0-35.0); Mean Corpuscular Volume 90.1 fL (80.0-98.0); Mean Platelet Volume 9.8 fL (9.4-12.3); Monocytes Absolute Auto 0.4 X10*3/uL (0.1-1.2); Neutrophils Percent Auto 58.5 % (45-73); Platelet Count 371 X10*3/uL (160-400); Red Blood Count 4.26 X10*6/uL (4.20-5.50); Red Cell Distribution Width 11.8 % (11.0-16.0); White Blood Count 6.3 X10*3/uL (4.8-10.8)
[2021-01-11 17:43] LABS: Alanine Aminotransferase 27 U/L (0-31); Albumin Level 4.6 g/dL (3.5-5.0); Alkaline Phosphatase 56 U/L (39-117); Anion Gap 14 (12-20); Aspartate Amino Transferase 24 U/L (5-31); Bilirubin Total 0.5 mg/dL (0.0-1.0); Blood Urea Nitrogen 10 mg/dL (9-16); Calcium 9.4 mg/dL (8.4-10.2); Carbon Dioxide 25 mmol/L (22-29); Chloride 105 mmol/L (96-108); Creatinine Clr Calc Pharmacy 131.7; Estimated Glomerular Filt Rate > 60; Glucose Random 85 mg/dL (60-115); Lipase 13 U/L (8-78); Potassium 3.6 mmol/L (3.3-5.1); Sodium 140 mmol/L (135-145); Total Protein 7.4 g/dL (6.5-8.0)
[2021-01-11 18:52] VITALS: BP 138/81; PULSE 60; RESP 15; TEMP 36.8; O2SAT 99
[2021-01-11] MEDS: oxyCODONE HCl Immed Release 5 MG TABLET PO (18:56)
--- NOTE | 2021-01-11 18:57 | PC.NURSE ---
This RN to bedside assisting primary RN. Pt resting on stretcher in nad, breathing with ease on RA, vss. Pt aaox4, reports RLQ abd pain, medicated per MAR. Dr Cruz to bedside to give DC verbal instructions, informs this RN that urine sample is not needed and pt can be discharged. Pt agreeable with plan. This rn to DC pt.
== END 2021-01-11 19:12 | disposition home or self-care (01) ==
PROVIDERS: Emergency Provider Emergency Medicine
DX: R10.31 Right lower quadrant pain (principal); M54.50 Low back pain, unspecified; Z79.899 Other long term (current) drug therapy
CPT/HCPCS: 36415; 80053; 83690; 85025; 93975; 99284; J1885; J2405

== ENCOUNTER 2021-01-12 12:30 | Outpatient (RCR) | payer OTHER, MEDICAID, SELFPAY ==
--- NOTE | 2020-12-29 13:57 | MHC.OT.OP ---
[address] [phone] F: [phone] Occupational Therapy Progress Note Diagnosis: Right non displaced right radial head fracture Date of Evaluation: 12/10/20 Treatments to Date: 5 Cancellations to Date: 0 No Shows to Date: 0 Subjective: It feels tight, like a catching Pain Score: 5 Pain Location: Right radial wrist > elbow Objective Measures: AROM elbow: ext 35 degrees (post rx 18 degrees) flex 140 degrees sup 45 degrees (post rx 70) AROM wrist: 75/75 Status: Progressing Assessment: Nikia is now 5.5 weeks s/p radial head fx. She has difficulty maintaining gains between OT sessions, but shows good increase in range over today's session. Range limitations appear to be soft tissue origin versus development of joint tightness at this time. Needs encouragement to increase participation in HEP to maintain gains from treatment, but appears motivated and has good understanding of HEP and limitations. Short Term Goals: Demo indep with her HEP Dec pain to 0/10 at rest Elbow ext to <20 deg Supination to >55 deg Wrist flex to 55 deg Use of right dominant hand with all ADL Frame Bender Goals: Elbow ext to <10 deg Supination to >70 deg Indep with light strengthening ther ex and activities and ex progression Tolerate up to 10 lb lift and carry with right dominant hand Mild difficulty with heavy homemaking with modifications as needed Frequency and Duration: The patient will be seen 2-3x/wk for 4 weeks Treatment Plan: Therapeutic Exercise Therapeutic Activity Home Exercise Program Patient Education Edema Control ADL Training MHP Cold Packs Joint Mobilization Soft Tissue Mobilization Kinesiotaping Electronically Signed By: Aida Goodrich OTR/L Reviewed/agree with student documentation: N/A Therapist:
--- NOTE | 2021-01-20 08:27 | MHC.OT.DC ---
[address] [phone] F: [phone] Occupational Therapy Discharge Note Provider: Lauri Chanel Diagnosis: Right non displaced right radial head fracture Date of Surgery: Date of Evaluation: 12/10/20 Date of Discharge: Treatments to Date: 8 Cancellations to Date: 0 No Shows to Date: 0 Discharge Status: Improved Function Independent with HEP Discharge Summary: Elbow ext 18 deg , 10 deg after RX, flexion 145 deg Cardiopulmonary Specialist right 10 lb......left 30 lb I anticipate pt to continue to improve with her HEP and daily activities Pt WEANED TO SELF MANAGEMENT, DENIES DIFFICULTIES WITH ADLs OR IADLs. PRINTED HEP PROVIDED. Electronically Signed By: Abby Ramirez OT CHT CLT Reviewed/agree with student documentation: N/A Therapist: Please Sign and return to therapist, thank you for your referral.
== END 2021-01-21 11:38 | disposition home or self-care (01) ==
LOC: HO.OT 12:30
PROVIDERS: Visit Provider Orthopaedic Surgery
DX: S52.121D Displaced fracture of head of right radius, subsequent encounter for closed fracture with routine healing (principal)
CPT/HCPCS: 97110; 97140; 97165; 97530

== ENCOUNTER 2021-01-14 10:01 | Outpatient (REF) | payer OTHER, MEDICAID, SELFPAY ==
--- NOTE | ~2021-01-14 | XR_ITS ---
EXAMINATION: XR ELBOW, RIGHT CLINICAL INFORMATION: Right elbow pain COMPARISON: Right elbow x-ray 12/09/2020 TECHNIQUE: AP, lateral, and oblique views of the right elbow. FINDINGS: Cortical irregularity involving the radial head is again demonstrated consistent with a subacute/healing fracture. There remains good anatomical alignment. No new acute fracture of the right elbow identified. There is no dislocation. No significant degenerative changes. No joint effusion. No radiopaque foreign body. XR/XR elbow RT min 3V IMPRESSION: Subacute/healing right radial head fracture again demonstrated.
== END 2021-01-14 10:02 | disposition home or self-care (01) ==
LOC: HO.HOSX 10:01
PROVIDERS: Visit Provider Physician Assistant
DX: S52.121D Displaced fracture of head of right radius, subsequent encounter for closed fracture with routine healing (principal)
CPT/HCPCS: 73080

== ENCOUNTER 2021-11-01 11:15 | Emergency (ER) | payer BC, MEDICAID, SELFPAY ==
--- NOTE | ~2021-11-01 | XR_ITS ---
EXAMINATION: XR HAND WRIST, RIGHT CLINICAL INFORMATION: Swelling, pain COMPARISON: Right wrist radiograph from 12/09/2020 TECHNIQUE: 5 views of the right hand and wrist FINDINGS: No acute visible fracture or dislocation. Joint spaces and alignment are maintained. Soft tissues are unremarkable. XR/XR hand wrist RT IMPRESSION: No acute visible fracture or dislocation.
[2021-11-01 11:21] VITALS: BP 148/93; PULSE 99; RESP 18; TEMP 35.9; O2SAT 99; BMI 39.4
== END 2021-11-01 15:47 | disposition left against medical advice (07) ==
PROVIDERS: Emergency Provider Emergency Medicine
DX: M79.601 Pain in right arm (principal); M25.521 Pain in right elbow
CPT/HCPCS: 73110; 73130; 99281; 99283

== ENCOUNTER 2022-08-09 18:30 | Emergency (ER) | payer SELFPAY ==
--- NOTE | ~2022-08-09 | XR_ITS ---
EXAMINATION: XR CERVICAL SPINE CLINICAL INFORMATION: Neck pain COMPARISON: None available. TECHNIQUE: 3 views of the cervical spine were obtained. FINDINGS: There is straightening of the normal lordosis. [place] at C4-C5. There is no listhesis or compression injury. No significant degenerative change is seen. Possible mild scoliosis convex right. XR/XR cervical spine 3V IMPRESSION: Reversal of the normal lordosis. This could be due to position or spasm. No acute bony finding on this plain film study. If further evaluation is warranted consider CT or MR.
--- NOTE | ~2022-08-09 | XR_ITS ---
EXAMINATION: XR SHOULDER, RIGHT CLINICAL INFORMATION: Shoulder pain COMPARISON: None available. TECHNIQUE: AP external rotation, Grashey, scapular Y, and axillary views of the right shoulder. FINDINGS: The bones and soft tissues are normal. No fracture. Glenohumeral and acromioclavicular alignment is anatomic with normal joint space. No abnormal soft tissue calcifications. XR/XR shoulder RT min 2V IMPRESSION: Normal right shoulder.
[2022-08-09 19:09] VITALS: BP 176/92; PULSE 101; RESP 19; TEMP 36.4; O2SAT 98; BMI 42.0
--- NOTE | 2022-08-09 19:09 | ED_ITS ---
HPI - General Adult General Chief complaint: Extremity Injury, Upper Stated complaint: right shoulder pain Related Data Home Medications Medication Instructions Recorded Confirmed albuterol sulfate 90 mcg/actuation 2 puff inhalation QID PRN wheezing 11/24/20 aerosol inhaler fluticasone propionate 50 1 spray intranasal BID 11/24/20 mcg/actuation nasal spray,suspension nystatin 100,000 unit/gram topical topical 11/24/20 powder (Nystop) Previous Rx's Medication Instructions Recorded hydrocodone 5 mg-acetaminophen 325 1 tab PO Q4-6H PRN pain #10 tabs 11/21/20 mg tablet ibuprofen 600 mg tablet 600 mg PO Q8H PRN pain #20 tabs 11/21/20 ibuprofen 800 mg tablet 800 mg PO Q8H PRN pain 30 days #90 11/24/20 tabs nitrofurantoin 100 mg PO Q12H 5 days #10 caps 01/08/21 monohydrate/macrocrystals 100 mg capsule (Macrobid) phenazopyridine 100 mg tablet 100 mg PO TID PRN pain 6 doses #12 01/08/21 (Pyridium) tabs ondansetron HCl 4 mg tablet 4 mg PO Q8H PRN nausea and 01/11/21 (Zofran) vomiting #14 tabs oxycodone-acetaminophen 5 mg-325 1 tab PO TID PRN pain #10 tabs 21 mg tablet (Percocet) oxycodone-acetaminophen 5 mg-325 1 tab PO TID PRN pain #10 tabs 21 mg tablet (Percocet) Allergies Allergy/AdvReac Type Severity Reaction Status Date / Time Penicillins [PENICILLINS] Allergy Unknown UNKNOWN Verified 08/09/22 19:09 [facility] Past Medical History Surgical History Previous section Social History Social History Alcohol intake: never Patient Tobacco Use Status: Never used Tobacco Advance Directives: No Advance Directives Information Provided: No Physical Exam ED Vital Signs: BMI result Body Mass Index 42.0 Course Course Course Narrative: This is an RME: Additional HPI, ROS, PE not included below will be deferred to primary provider. This is a 32-year-old female presenting to the emergency department with a compl aint of right shoulder pain and neck pain x 4 days. Pt states that she was playing with her 4 year old son and was struck by his knee in her right shoulder/neck 4 days ago has had pain increasing since. Has had increased pain and numbness/tingling into her right arm. Reports weak gum dipper strength on the right since. VSS in triage. Pt stable to return back to the until treatment room becomes available. Plan: right shoulder xray, c-spine x-ray ordered. Reevaluation(s) Reevaluation #1: Pt left without being seen Discharge Plan Discharge Clinical Impression: Acute shoulder pain Patient Disposition: Left Without Being Seen Interventions: LWBS Worksheet Last Done: 08/09/22 21:23 Discharge Date/Time: 08/09/22 21:23
== END 2022-08-09 21:23 | disposition left against medical advice (07) ==
PROVIDERS: Emergency Provider Emergency Medicine
DX: M25.511 Pain in right shoulder (principal); Z79.899 Other long term (current) drug therapy
CPT/HCPCS: 72040; 73030; 99281; 99283

== ENCOUNTER → 2023-06-28 07:49 | Outpatient (BNVA) | payer SELFPAY | PROVIDERS: Visit Provider Physician Assistant Surgical ==